=== PATIENT | male | born 1990 | race Caucasian/White ===

== ENCOUNTER 2017-01-14 14:29 | Emergency (ER) | payer SELFPAY ==
--- NOTE | ~2017-01-14 | ER ---
PATIENT'S NAME: FREDO WALSH [facility] AGE: 27 Y [address] ROOM: [place] [id number] LOCATION: ED ADMIT DATE: 01/14/2017 ER/Outpatient Report DISCHARGE DATE: 01/14/2017 FAMILY PHYSICIAN: PHYSICIAN, NO ATTENDING PHYSICIAN: Nikko Stephen CHIEF COMPLAINT: Chest pain. HISTORY OF PRESENT ILLNESS: The patient presents after seven continuous days of unrelenting chest pain. The pain is worse with working. It is better with rest. He is not taking anything to make this better. He is unsure if he has shortness of breath associated with it. He has an extensive history of multiple ER visits for similar. Today, his biggest concern is whether or not he should keep working. 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 He chews tobacco, but does not smoke. He has no known history of hypertension or cholesterol or diabetes issues. His mom has a heart condition, but he does not know what it is. PAST MEDICAL HISTORY: Documented in the record and reviewed by me. SOCIAL HISTORY: Documented in the record and reviewed by me. MEDICATIONS: Documented in the record and reviewed by me. ALLERGIES: DOCUMENTED IN THE RECORD AND REVIEWED BY ME. REVIEW OF SYSTEMS: All systems were reviewed and negative except as noted in the HPI. PHYSICAL EXAMINATION: VITAL SIGNS: Blood pressure 124/62, pulse is 90, respiratory rate is 17, temperature 97.6, and SpO2 is 98% on room air. Pain is rated at 3/10. GENERAL: Age-appropriate male, in no obvious pain or distress. Resting comfortably on the exam table. HEENT: Normocephalic and atraumatic. Eyes are PERRL. Oropharynx is clear. NECK: Supple. Trachea is midline. CHEST/HEART: Regular rate and rhythm with no murmurs. LUNGS: Clear to auscultation bilaterally with no rhonchi, wheezes, or rales. PATIENT'S NAME: FREDO WALSH [facility] AGE: 27 Y [address] ROOM: [place], [place] [address] LOCATION: ED ADMIT DATE: 01/14/2017 ER/Outpatient Report DISCHARGE DATE: 01/14/2017 FAMILY PHYSICIAN: PHYSICIAN, NO ATTENDING PHYSICIAN: Nikko Stephen ABDOMEN: Soft, nontender, and nondistended. No rebound or guarding. CHEST WALL: Notable for some slight tenderness at the costochondral margin bilaterally. It does radiate across the xiphoid process. BACK: Nontender to palpation throughout. No CVA tenderness. EXTREMITIES: Warm and well perfused. SKIN: Warm, dry, and intact. LABORATORY DATA AND X-RAYS: Chest x-ray, unremarkable per my read. CMS with elevated AST and ALT. No elevation of bilirubin. Magnesium, CPK, and CK-MB are all within normal limits. Troponin is below detectable threshold. CBC is unremarkable. INR is in appropriate range. EKG; sinus rhythm, ventricular rate of 80 with normal intervals and axis. No signs of acute ischemia. IMPRESSION: 1. Atypical musculoskeletal chest discomfort. 2. Transaminitis. EMERGENCY DEPARTMENT COURSE: The patient was seen and evaluated as above. His presentation is not consistent with acute hepatobiliary disease such as pancreatitis or cholecystitis. His abdominal exam is completely benign. His symptoms do not change with food. He has had no infectious signs or symptoms. His symptoms are only related to work. I am recommending follow up with his primary care physician for further evaluation and re-evaluation of his liver enzymes, and further evaluation of work. He can take some Tylenol or ibuprofen as needed. He should be seen within the week. MD MERI SHEARER/maurice /[id number] d: 01/15/17 1438 t: 01/24/17 1741, OUTPATIENT REPORT
[2017-01-14 15:04] LABS: BASOPHIL # 0.1 K/uL (0.0-0.2); BASOPHIL % 0.8 %; EOSINOPHIL # 0.3 K/uL (0.0-0.5); EOSINOPHIL % 3.6 %; HEMATOCRIT 45.1 % (37.0-53.0); HEMOGLOBIN 15.1 g/dL (12.0-17.0); IMMATURE GRANULOCYTE # 0.1 K/uL (0.0-0.3); LYMPHOCYTE # 1.7 K/uL (0.8-4.0); LYMPHOCYTE % 23.4 %; MCH 28.8 pg (27.0-34.0); MCHC 33.5 gm/dL (32.0-36.5); MCV 86.1 fl (83.0-98.0); MONOCYTE # 0.6 K/uL (0.0-1.0); MPV 10.2 fl (9.4-12.4); NEUTROPHIL # (ANC) 4.5 K/uL (1.4-9.0); NEUTROPHIL % 62.2 %; NRBC % 0 /100WBC (0-0.00); PLATELET COUNT 274 K/uL (150-450); RBC 5.24 M/uL (4.00-6.00); RDW-CV 12.4 % (11.9-14.6); WBC 7.2 K/uL (4.0-11.0)
[2017-01-14 15:12] LABS: INR - (THERAPEUTIC) 0.98 (0.92-1.07); PROTIME 10.3 SECONDS (9.8-11.4); PTT 24 SECONDS (25-32)
[2017-01-14 15:22] LABS: ALBUMIN 3.8 gm/dL (3.5-5.0); ALK PHOS 90 IU/L (33-138); ALT 215 IU/L (12-78); AST 127 IU/L (10-40); BLOOD UREA NITROGEN 9 mg/dL (6-24); CALCIUM 8.5 mg/dL (8.5-10.5); CHLORIDE 106 mMol/L (96-110); CO2 28 mMol/L (22-32); CPK 60 IU/L (35-332); CREATININE 0.8 mg/dL (0.6-1.3); ESTIMATED GFR (MDRD EQUATION) > 60; MAGNESIUM 2.1 mg/dL (1.8-2.6); SODIUM 143 mMol/L (135-145); TOTAL BILIRUBIN 0.4 mg/dL (0.0-1.5); TOTAL PROTEIN 7.2 g/dL (6.0-8.4)
== END 2017-01-14 16:06 | disposition disaster alternative care site (69) ==
LOC: GMED 14:29
PROVIDERS: Emergency Medicine
DX: R07.89 Other chest pain (principal); R74.0 Nonspecific elevation of levels of transaminase and lactic acid dehydrogenase [LDH]; F41.9 Anxiety disorder, unspecified